=== PATIENT | female | born 1950 | race Caucasian/White ===

== ENCOUNTER → 2016-12-07 | Outpatient (CLI) | payer MEDICARE, BC ==
[~2016-12-07] MED LIST: ASPIRIN E.C. 8181 MG PO; HCTZ 25MG25 MG PO; LEVOTHYROXIN0.125 MG PO; LISINOPRIL10 MG PO; METFORMIN500 MG PO; MULTIPLE VITAMI1 CAP PO; SIMVASTATIN5 MG PO; VITAMIN D5000 IU PO; ZOCOR
== END ==
LOC: MC.RAD 08:20
DX: Z12.31 Encounter for screening mammogram for malignant neoplasm of breast (principal)

== ENCOUNTER → 2017-12-18 | Outpatient (CLI) | payer MEDICARE, BC | LOC: MC.RAD 14:10 | DX: Z12.31 Encounter for screening mammogram for malignant neoplasm of breast (principal) ==